=== PATIENT | male | born 1960 | race Caucasian/White ===

== ENCOUNTER → 2022-01-19 | Outpatient (CLI) | payer OTHER ==
[~2022-01-19] MED LIST: AMBIEN10 MG PO; LOW DOSE ASPIRI81 MG PO; MOBIC15 MG PO; MULTIPLE VITAMI1 CAP PO; NORFLEX100 MG PO; PERCOCET 325 MG1 TAB PO; SENNA-S 50 MG-81 TAB PO; SENNA1 TAB PO; TENORMIN25 MG PO
== END ==
LOC: COL.RAD 09:45
DX: N28.1 Cyst of kidney, acquired (principal); I78.0 Hereditary hemorrhagic telangiectasia
CPT/HCPCS: A9575